=== PATIENT | female | born 1985 | race Caucasian/White ===

== ENCOUNTER 2018-04-29 11:49 | Emergency (ER) | payer MEDICAID ==
[~2018-04-29] VITALS: Ht 157.5 cm; Wt 68.0 kg
[2018-04-29 11:49] VITALS: BP_SYST 121
[2018-04-29] MEDS ORDERED: KETOROLAC TROMETHAMINE 30 MG VIAL IM ONE (12:15)
[2018-04-29] MEDS ORDERED: CYCLOBENZAPRINE HCL 10 MG TABLET (FLEXERIL) PO ONE (12:15)
[2018-04-29 13:42] VITALS: BP_SYST 119
== END 2018-04-29 13:42 | disposition home or self-care (01) ==
LOC: SED 11:49
DX: S39.012A Strain of muscle, fascia and tendon of lower back, initial encounter (principal); R03.0 Elevated blood-pressure reading, without diagnosis of hypertension; X50.1XXA Overexertion from prolonged static or awkward postures, initial encounter; Y93.89 Activity, other specified; Y92.89 Other specified places as the place of occurrence of the external cause; Y99.8 Other external cause status
CPT/HCPCS: 81025; 96372; 99283; J1885